=== PATIENT | male | born 1980 | race African-American/Black ===

== ENCOUNTER 2017-08-19 10:59 | Inpatient (IN) | payer OTHER ==
[~2017-08-19] VITALS: Ht 185.4 cm; Wt 153.8 kg
[~2017-08-19 10:59] MED LIST: AMOXICILLIN875 MG PO; AVANDIA8 MG PO; GLIPIZIDE10 MG PO; GLUCOPHAGE500 MG PO; LOPRESSOR50 MG PO; Lopressor PO; METOPROLOL TART50 MG PO; PRINIVIL10 MG PO
[2017-08-19 12:32] LABS: HEMATOCRIT 42.3 % (38.0-50.0); HEMOGLOBIN 14.1 G/DL (12.5-16.6); MCH 29.4 PG (29.0-34.0); MCHC 33.3 G/DL (30.0-36.0); MCV 88.1 FL (86-99); PLATELET COUNT 295 K/uL (156-360); RBC DIS.WIDTH-CV 11.8 % (11.8-14.6); RBC DIS.WIDTH-SD 38.4 % (39-53)
[2017-08-19 12:43] LABS: CHLORIDE 97 mEq/L (99-109); POTASSIUM 4.5 mEq/L (3.7-5.4); SODIUM 132 mEq/L (136-147)
[2017-08-19 12:44] LABS: GLUCOSE 363 mg/dL (70-99)
[2017-08-19 12:48] LABS: CREATININE 1.3 mg/dL (0.6-1.3); GFR ESTIMATE (CALCULATED) > 59 mL/min/ (58.99-99999)
[2017-08-19 12:49] LABS: UREA NITROGEN (BUN) 15 mg/dL (9-23)
[2017-08-19 13:20] LABS: BASOPHIL (%) 0.2 % (0-1); EOSINOPHIL (%) 0.3 % (0-5); EOSINOPHIL COUNT 0.1 K/uL (0-0.3); HEMATOLOGY COMMENT 1 SMEAR COMPATIBLE; IMMATURE GRANULOCYTE (%) 0.6 % (0.0-0.7); LYMPHOCYTE (%) 9.3 % (15-42); LYMPHOCYTE COUNT 1.5 K/uL (1.0-2.8); MONOCYTE (%) 7.6 % (3-12); MONOCYTE COUNT 1.2 K/uL (0-0.8); NEUTROPHIL COUNT 13.1 K/uL (1.8-6.4)
[2017-08-19 19:32] LABS: APPEARANCE SL.HAZY ((CLEAR)); BILIRUBIN NEGATIVE; BLOOD SMALL; COLOR YELLOW ((YELLOW)); GLUCOSE (STRIP) >=500; KETONES 20; LEUKOCYTES TRACE; NITRITE NEGATIVE; PROTEIN (STRIP) 100; SPECIFIC GRAVITY 1.022 (1.000-1.030)
[2017-08-19 19:47] LABS: BACTERIA RARE /HPF; EPITHELIAL CELLS RARE /HPF; MUCUS TRACE /LPF; UCUL ADDED? YES
[2017-08-20] VITALS (7 sets, daily range): BP systolic 117–139; BP diastolic 61–80
[2017-08-20 06:57] LABS: HEMATOCRIT 32.6 % (38.0-50.0); MCH 29.5 PG (29.0-34.0); MCHC 32.8 G/DL (30.0-36.0); MCV 89.8 FL (86-99); PLATELET COUNT 267 K/uL (156-360); RBC DIS.WIDTH-CV 12.2 % (11.8-14.6); RBC DIS.WIDTH-SD 40.4 % (39-53); WHITE BLOOD COUNT 23.5 K/uL (4.1-10.2)
[2017-08-20 07:44] LABS: HEMOGLOBIN 10.7 G/DL (12.5-16.6); RED BLOOD COUNT 3.63 M/uL (4.00-5.50)
[2017-08-21] VITALS (7 sets, daily range): BP systolic 117–171; BP diastolic 64–81
[2017-08-21 09:26] LABS: BASOPHIL (%) 0.1 % (0-1); EOSINOPHIL (%) 0.2 % (0-5); EOSINOPHIL COUNT 0.1 K/uL (0-0.3); HEMOGLOBIN 10.8 G/DL (12.5-16.6); LYMPHOCYTE (%) 10.2 % (15-42); LYMPHOCYTE COUNT 2.1 K/uL (1.0-2.8); MCH 29.6 PG (29.0-34.0); MCHC 32.7 G/DL (30.0-36.0); MCV 90.4 FL (86-99); MONOCYTE (%) 7.2 % (3-12); MONOCYTE COUNT 1.5 K/uL (0-0.8); NEUTROPHIL (%) 81.3 % (45-76); PLATELET COUNT 305 K/uL (156-360); RBC DIS.WIDTH-CV 12.5 % (11.8-14.6); RBC DIS.WIDTH-SD 41.6 % (39-53); RED BLOOD COUNT 3.65 M/uL (4.00-5.50)
[2017-08-21 09:40] LABS: CHLORIDE 106 MEQ/L (99-109); CREATININE 0.9 MG/DL (0.6-1.3); GFR ESTIMATE (CALCULATED) > 59 mL/min/ (58.99-99999); POTASSIUM 4.4 MEQ/L (3.7-5.4); SODIUM 137 MEQ/L (136-147); UREA NITROGEN (BUN) 13 mg/dL (9-23)
[2017-08-21 09:41] LABS: GLUCOSE 174 mg/dL (70-99)
[2017-08-21 10:38] LABS: HEMOGLOBIN A1c (GLYCOHEMOGLOB) 13.9 % (Below 5.7)
[2017-08-22 03:33] VITALS: BP 124/68
[2017-08-22 08:00] VITALS: BP 142/73
[2017-08-22 09:22] LABS: BASOPHIL (%) 0.2 % (0-1); EOSINOPHIL COUNT 0.2 K/uL (0-0.3); HEMATOCRIT 29.8 % (38.0-50.0); HEMOGLOBIN 9.7 G/DL (12.5-16.6); IMMATURE GRANULOCYTE (%) 1.6 % (0.0-0.7); LYMPHOCYTE (%) 15.7 % (15-42); LYMPHOCYTE COUNT 2.6 K/uL (1.0-2.8); MCHC 32.6 G/DL (30.0-36.0); MCV 89.2 FL (86-99); MONOCYTE (%) 7.1 % (3-12); MONOCYTE COUNT 1.2 K/uL (0-0.8); NEUTROPHIL (%) 74.4 % (45-76); NEUTROPHIL COUNT 12.2 K/uL (1.8-6.4); PLATELET COUNT 325 K/uL (156-360); RBC DIS.WIDTH-CV 12.7 % (11.8-14.6); RBC DIS.WIDTH-SD 41.8 % (39-53); RED BLOOD COUNT 3.34 M/uL (4.00-5.50); WHITE BLOOD COUNT 16.4 K/uL (4.1-10.2)
[2017-08-22 09:55] LABS: CHLORIDE 106 MEQ/L (99-109); CREATININE 0.7 MG/DL (0.6-1.3); GFR ESTIMATE (CALCULATED) > 59 mL/min/ (58.99-99999); GLUCOSE 137 mg/dL (70-99); SODIUM 138 MEQ/L (136-147); UREA NITROGEN (BUN) 8 mg/dL (9-23)
[2017-08-22 12:00] VITALS: BP 137/76
[2017-08-22] MEDS ORDERED: NOVOLOG 10100 UNITS/ SC (13:30)
[2017-08-22] MEDS ORDERED: LEVEMIR100 UNIT/2 SC (13:30)
[2017-08-22 15:40] VITALS: BP 143/83
[2017-08-22 23:01] VITALS: BP 131/73
[2017-08-23 07:37] VITALS: BP 167/91
[2017-08-23] MEDS ORDERED: LEVOFLOXACIN750 MG PO (13:55)
[2017-08-23] MEDS ORDERED: ENDOCET 5-3251 EACH PO (13:55)
[2017-08-23] MEDS ORDERED: AUGMENTIN875 MG PO (15:27)
[2017-08-23] MEDS ORDERED: ZOVIRAX400 MG PO (15:27)
== END 2017-08-23 15:39 | disposition home or self-care (01) | DRG 571 ==
LOC: EME 10:59 → SDC 21:24 → ENRESERV 22:27 → 2SOUTH 22:28 → 2EAST 22:28 → 2SOUTH 22:28 → ENRESERV 22:41 → 2EAST 23:51 → ENPENDDIS 08-23 → 2EAST 08-23 15:39
PROVIDERS: Internal Medicine; Surgery
PROC: 0JB90ZZ Excision of Buttock Subcutaneous Tissue and Fascia, Open Approach (ICD-10-PCS; principal; 2017-08-19)
DX: L02.31 Cutaneous abscess of buttock (principal); E66.01 Morbid (severe) obesity due to excess calories; E11.65 Type 2 diabetes mellitus with hyperglycemia; I11.0 Hypertensive heart disease with heart failure; D72.829 Elevated white blood cell count, unspecified; I50.9 Heart failure, unspecified; B02.9 Zoster without complications; Z68.42 Body mass index [BMI] 45.0-49.9, adult; Z79.899 Other long term (current) drug therapy; Z91.14 Patient's other noncompliance with medication regimen; Z79.4 Long term (current) use of insulin
CPT/HCPCS: 71046; 72192; 80048; 81003; 82948; 83036; 83605; 85025; 85027; 87070; 87075; 87076; 87086; 87185; 87205; 99281; 99285; G0378; J0131; J0295; J0330; J1100; J1170; J1815; J1885; J2270; J2405; J2543; J2710; J3010; J3370; J7030; J7050